=== PATIENT | male | born 1960 | race Caucasian/White ===

== ENCOUNTER → 2018-03-19 | Outpatient (CLI) | payer MEDICARE ==
--- NOTE | 2018-03-19 09:57 | RAD ---
EXAM DESCRIPTION: Knee,Left Complete CLINICAL HISTORY: PAIN IN LEFT KNEE COMPARISON: None. IMPRESSION: 4 standing views of the left knee show evidence of total knee arthroplasty with cement fixation of the tibial and femoral components. No radiographic evidence of hardware failure or loosening is seen. No fracture or dislocation is identified. Soft tissues are unremarkable. No obvious joint effusion. Electronically signed by: Raj Louie MD 03/19/2018 9:56 AM CDT
--- NOTE | 2018-03-22 09:31 | RAD ---
EXAM DESCRIPTION: Pelvis CLINICAL HISTORY: 57 years Male, PAIN IN LEFT HIP COMPARISON: None. FINDINGS: Bony pelvis is intact. Moderately acetabular degenerative changes are present with marginal osteophyte formation with preserved joint space and mild subcortical sclerosis. No fracture or dislocation or osteonecrosis is noted. The changes are similar on the left and right. IMPRESSION: Atrophic changes involving both acetabula consistent with modest degenerative changes, otherwise negative study Electronically signed by: Thai Yang MD 03/22/2018 9:29 AM [facility]
== END ==
LOC: RAD 08:33
PROVIDERS: ATTEND Orthopaedic Surgery
DX: M25.562 Pain in left knee (principal); M25.552 Pain in left hip; Z96.652 Presence of left artificial knee joint

== ENCOUNTER → 2018-03-31 | Outpatient (CLI) | payer MEDICARE, MEDICAID ==
--- NOTE | 2018-04-01 14:00 | NM ---
EXAM DESCRIPTION: Bone Scan, 3Phase CLINICAL HISTORY: Left knee pain COMPARISON: Left knee radiograph dated March 19, 2018 TECHNIQUE: Following intravenous administration of 28.5 mCi technetium 99m MDP, three-phase bone scan including the blood flow, blood pool, and delayed phases were obtained over the bilateral knees. FINDINGS: Blood flow phase: There is no significant blood flow to the bilateral knee regions. Physiologic radiotracer is noted within the vasculature of the knees. Blood pool phase: There is no significant increased blood pool to the bilateral knee regions. Delayed phase: Mild delayed phase increased uptake demonstrated of the lateral femoral condylar region of the left knee as well as the left tibial tuberosity. Photopenic defect is seen in the left knee region, compatible with left knee prosthesis. Degenerative uptake noted of the right knee. IMPRESSION: 1. No abnormal blood flow nor blood pool demonstrated of the left knee. There is mild delayed phase uptake in the lateral femoral condylar region as well as the tibial tuberosity of the left knee. These are nonspecific, and likely represent reactive uptake. No scintigraphic evidence for prosthesis loosening. 2. Degenerative uptake of the right knee. Electronically signed by: Madi Obregon MD 04/01/2018 1:59 PM [facility]
== END ==
LOC: NM 10:00
PROVIDERS: ATTEND Orthopaedic Surgery
DX: M25.562 Pain in left knee (principal)
CPT/HCPCS: 78315; A9503

== ENCOUNTER → 2018-11-17 | Outpatient (CLI) | payer MEDICARE ==
--- NOTE | 2018-11-17 13:47 | MRI ---
EXAM DESCRIPTION: Lumbar Spine w/o Contrast : Magnetic Resonance Imaging. CLINICAL HISTORY: SPONDYLOSIS LUMBAR COMPARISON: LUMBAR TECHNIQUE: Multiplanar, multiple standard sequences, non contrast MRI, lumbar spine. FINDINGS: L5-S1: Disc desiccation with minimal loss in the posterior disc space. Bilateral outer endplates with moderate endplate reaction. 5 mm posterior left paracentral disc bulge abutting the descending left S1 nerve. Bilateral hypertrophic facet arthrosis and thickened flavum ligaments. No significant narrowing. Moderate to severe narrowing of the right foramen and mild to moderate narrowing of the left foramen. Right hyperintense signal in the anterior L5 vertebral body on all sequences most likely a hemangioma. L4-L5: Disc desiccation and posterior disc space loss with moderate endplate reactive changes in the inferior L4 endplate. Posterior broad-based 3 mm disc bulge with hyperintense T2 annular fissure in the midline into the left of midline. Moderate bilateral facet hypertrophic arthrosis and ligament thickening; AP canal diameter 11 mm. Mild narrowing of the left foramen and right foramen is patent. L3-L4: Disc desiccation minimal disc space loss. Diffuse moderate endplate spondylosis changes more in the midline into the right of midline. Posterior midline 5 mm disc bulge. Mild to moderate bilateral hypertrophic facet arthrosis and ligament thickening. Elongated cystlike object between the left medial facet joint in the thecal sac also abutting the descending left L4 nerve in the lateral recess. Most likely a synovial cyst from the facet joint. AP canal diameter 9 mm. Marrow edema in the inferior L3 endplate with Schmorl's node and slight upward concavity could be related to spondylosis more partial compression injury. Normal marrow signal in the pedicles. L2-L3: Disc desiccation and minimal disc space loss. Concavity of the superior endplate, but no marrow edema. Disc desiccation with disc space preserved. Minimal posterior bulging. Bilateral hypertrophic facet arthrosis and flavum ligament thickening. AP canal diameter 11 mm. Bilateral foramina are patent. L1-L2: Disc desiccation with posterior disc space narrowed. Schmorl's node superior L2 endplate. Spondylosis anterior inferior L1 endplate. No posterior disc bulge. Bilateral foramina are patent. T12-L1: Minimal disc desiccation and small Schmorl's nodes in the endplates. No disc bulge. Posterior elements are not negative. Canal and foramina are patent. Conus terminates at this level. No scoliosis. Paravertebral soft tissues negative.. Otherwise normal marrow signal in the remaining vertebral bodies and the posterior elements. Vertebral bodies are not compressed at any level. IMPRESSION: 1. Left posterior paracentral L5-S1 disc bulge abutting the descending left S1 nerve. Bilateral mild spondylosis. Moderate to severe narrowing of the right foramen. 2. Posterior broad-based L4-L5 disc bulge. Moderate spondylosis. Posterior elements hypertrophy with moderate canal narrowing. 3. Posterior midline L3-L4 disc bulge. Moderate hypertrophic facet arthrosis and ligament thickening with mild canal stenosis. Left facet synovial cyst with mass effect on the descending left L4 nerve root. Marrow edema in the inferior L3 endplate can be due to spondylosis or superior compression injury. Superior L3 endplate negative. Electronically signed by: Jerome Jenkins MD 11/17/2018 1:45 PM CDT
== END ==
LOC: MRI 08:00
PROVIDERS: ATTEND Anesthesiology
DX: M47.816 Spondylosis without myelopathy or radiculopathy, lumbar region (principal); M51.16 Intervertebral disc disorders with radiculopathy, lumbar region; M71.38 Other bursal cyst, other site

== ENCOUNTER → 2018-12-03 | Outpatient (CLI) | payer MEDICARE, OTHER ==
--- NOTE | 2018-12-03 09:58 | RAD ---
EXAM DESCRIPTION: Knee,Right Complete CLINICAL HISTORY: M25.561 . Rheumatoid arthritis. COMPARISON: None FINDINGS: 4 views of the right knee. Joint spaces are relatively well-maintained. Mild marginal joint line osteophyte formations are noted greatest along the patellofemoral compartment. No significant subchondral sclerosis or cystlike formation is demonstrated along the knee joint to suggest an advanced osteoarthritis. No acute fractures are present. Normal bone mineralization is present. Slight varus deformity. Large enthesophytes at the quadriceps and patellar tendons without periosteal reaction. A small joint effusion is likely. IMPRESSION: No acute radiographic finding. Chronic findings described above. Electronically signed by: Saurabh Tai MD 12/03/2018 9:56 AM CDT
--- NOTE | 2018-12-03 14:38 | NM ---
EXAM DESCRIPTION: Hepatobiliar w/CCK CLINICAL HISTORY: Chronic abdominal pain COMPARISON: None available TECHNIQUE: Routine hepatobiliary scan was performed following intravenous administration of 8 mCi technetium 99m Choletec. Oral ingestion of 8 ounce Ensure fatty meal was used to stimulate gallbladder contraction. FINDINGS: Hepatobiliary scan shows prompt accumulation of the radiopharmaceutical within the liver and excretion into the biliary ductal system and gallbladder. Gallbladder ejection fraction is assessed following oral ingestion of fatty meal. Patient reports mild abdominal impression right upper quadrant following Ensure fatty meal consumption. Gallbladder ejection fraction calculated up to 48%. There is excretion of radiotracer from the common bile duct into the small bowel. IMPRESSION: 1. Visualization of the gallbladder essentially excludes acute cholecystitis. 2. Minimal gallbladder ejection fraction at 48% (normal range is greater than 35%). 3. Patient reports mild abdominal pressure right upper quadrant following Ensure fatty meal consumption. Electronically signed by: Madi Obregon MD 12/03/2018 2:36 PM CDT
== END ==
LOC: NM 09:30
PROVIDERS: ATTEND Emergency Medicine
DX: M76.891 Other specified enthesopathies of right lower limb, excluding foot (principal); M25.761 Osteophyte, right knee; M21.161 Varus deformity, not elsewhere classified, right knee; R10.9 Unspecified abdominal pain
CPT/HCPCS: 73562; 78227; A9537

== ENCOUNTER → 2019-01-13 | Outpatient (CLI) | payer MEDICARE, OTHER ==
--- NOTE | 2019-01-13 11:16 | RAD ---
Pelvis one view INDICATION: Right hip and left hip pain IMPRESSION: Moderate osteoarthrosis of both hips. No evidence of displaced fracture. No destructive lesion. Electronically signed by: Sony Hawk MD 01/13/2019 11:13 AM CDT
--- NOTE | 2019-01-13 11:21 | RAD ---
Right shoulder 4 views INDICATION: Shoulder pain IMPRESSION: Mild glenohumeral and AC joint osteoarthrosis. No fracture or dislocation. Electronically signed by: Sony Hawk MD 01/13/2019 11:18 AM CDT
--- NOTE | 2019-01-13 13:59 | MRI ---
MRI right shoulder without contrast INDICATION: Shoulder pain rotator cuff tear TECHNIQUE: Noncontrast MR imaging right shoulder standard protocol FINDINGS: Fairly severe hypertrophic AC joint osteoarthrosis. Minimal subacromial and subdeltoid bursal fluid. There is cystic change along the bursal surface of the infraspinatus myotendinous region into the interstitium. Interstitial undersurface tendinosis and partial tears of the insertional supraspinatus and infraspinatus low to moderate grade. No detachment. Cystic change greater tuberosity. Minimal bursal edema. Diffuse labral degeneration and mild glenohumeral osteoarthrosis. Small para labral cyst along the inferior glenoid coronal series 401 image 13. No bicep rupture or dislocation. Subscapularis is intact. There is a small lipoma along the inferior margin subscapularis sagittal series 601 image 16. This measures 1.6 x 1 cm. Grade 1-2 fatty marbling throughout the rotator cuff muscle bellies. IMPRESSION: Interstitial cyst/ganglion upper infraspinatus related to interstitial partial tear of the tendon Fairly severe hypertrophic AC joint arthrosis with subacromial enthesophyte and type III acromion Interstitial tendinosis and partial tear supraspinatus without detachment Mild bursal edema Diffuse labral degeneration with mild glenohumeral osteoarthrosis and small para labral cysts Electronically signed by: Sony Hawk MD 01/13/2019 1:57 PM CDT
== END ==
LOC: RAD 08:24
PROVIDERS: ATTEND Orthopaedic Surgery
DX: M16.0 Bilateral primary osteoarthritis of hip (principal); M19.011 Primary osteoarthritis, right shoulder; M65.811 Other synovitis and tenosynovitis, right shoulder; M75.101 Unspecified rotator cuff tear or rupture of right shoulder, not specified as traumatic; M67.411 Ganglion, right shoulder; M25.512 Pain in left shoulder

== ENCOUNTER 2019-01-26 05:55 | Day surgery (SDC) | payer MEDICARE, OTHER ==
[2019-01-26] MEDS ORDERED: PROPOFOL 200 MG/20 ML VIAL IV ONE (07:00)
[2019-01-26] MEDS ORDERED: LIDOCAINE 1% 10 ML VIAL INJ ONE (07:00)
[2019-01-26] MEDS ORDERED: LACTATED RINGERS 1,000 ML ONE (13:28)
[2019-01-26 14:06] VITALS: O2SAT 99
[2019-01-26] MEDS: LIDOCAINE 1% 10 ML VIAL INJ ONE ×2 (14:26→14:28)
[2019-01-26] MEDS: BUPIVACAINE 0.25% W/EPI 50 ML VIAL INJ ONE ×2 (14:26→14:28)
[2019-01-26] MEDS: methylPREDNISolone ACETATE 80 MG/ML VIAL ONE ×2 (14:26→14:28)
[2019-01-26 15:52] VITALS: BP 132/68; TEMP 97.9
--- NOTE | 2019-01-28 09:40 | OP ---
DATE OF PROCEDURE: 01/26/19 PREOPERATIVE DIAGNOSIS: 1. Bilateral hip osteoarthritis. POSTOPERATIVE DIAGNOSIS: 1. Bilateral hip osteoarthritis. PROCEDURE: 1. Bilateral hip injection. SURGEON: Charbel Padilla MD. LITIGATION SUPPORT ANALYST: Jerome Boggs CST, SA-C. ANESTHESIA: Conscious sedation. COMPLICATIONS: None. FINDINGS: Severe arthritis of both hips. INDICATION: Mr. Ahumada has a history of pain that has been associated with bilateral hip osteoarthritis. Because of his ongoing pain and failure of more conservative measures, he has requested operative intervention. After discussing the risks, benefits and alternatives to that, the patient has given informed consent for bilateral hip infection. PROCEDURE: The patient was brought to the Operating Room and placed in supine position. Conscious sedation was administered and groin was prepped with Betadine solution. The hip was flexed, abducted and externally rotated. Fluoroscopic imaging was used to advance spinal needle into the hip joint at which time 8 cc of lidocaine and 1 cc Depo-Medrol were injected into the joint. Attention was then focused on the contralateral side. After prepping the groin with Betadine solution, it was flexed, abducted and externally rotated. A spinal needle was advanced into the hip joint and it was injected with lidocaine and Depo-Medrol. Sterile bandages were placed. The patient was then taken back to the Day Surgery Unit. POSTOPERATIVE PLAN: The patient will be weightbearing as tolerated. The patient will followup with us in about 10 days. #[id number] [facility]TDD
--- NOTE | 2019-02-01 14:29 | RAD ---
PROVIDED CLINICAL HISTORY/REASON FOR EXAM: IA INJECTION Findings/impression: Two intraoperative fluoroscopic images of an intra-articular hip injection. Dose: Not documented Time: Five seconds Electronically signed by: Matthieu Kaye MD 02/01/2019 2:27 PM CDT
== END 2019-01-26 15:45 | disposition home or self-care (01) ==
LOC: AMB 05:55
PROVIDERS: ATTEND Orthopaedic Surgery
DX: M16.0 Bilateral primary osteoarthritis of hip (principal); Z79.01 Long term (current) use of anticoagulants; Z79.899 Other long term (current) drug therapy
CPT/HCPCS: 01200; 20610; 36416; 76000; 80307; 82948; 87070; J1030; J3490; J7120

== ENCOUNTER → 2019-04-01 | Outpatient (CLI) | payer MEDICARE, OTHER ==
--- NOTE | 2019-04-01 14:09 | CT ---
Procedure: CT LUNG SCREENING Exam Date: 04/01/2019. Ordering Provider: MARISABEL FISCHER Clinical Indication: HX OF NICOTINE DEPENDENCE . Current cigarette smoker. 30-40 pack years. This patient meets eligibility criteria for low-dose CT lung cancer screening. Comparison: None. Technique: Using a multislice scanner, sequential helical axial imaging was obtained in the thorax, 2.5 mm thickness, 2.5 mm separation, from the level of the thoracic inlet through the lung bases without IV contrast. A low dose protocol was utilized for BMI greater than than 30: BMI: 31.6. CTDI: 2.93 mGy. 120. kVp. 75 mA. DLP 108.46 mGy-centimeters. 2D sagittal and coronal reconstructed images, 6.0 mm thickness, were obtained. This exam was performed according to our departmental dose optimization program which includes use of automated exposure control, adjustment of the mA and/or kV according to patient size and/or use of iterative reconstruction technique. Nodule measurements under 10 mm are given as mean value of 3 axes diameters. FINDINGS: Lungs and large airways: Small bilateral uniform parenchymal blebs in a centrilobular distribution predominantly upper lung lucero. Parenchymal pleural scarring in the inferior right middle lobe and inferior lingula. No abnormal nodules. Pleura and space: Small 3 mm calcification abutting the anterior lateral pleura right upper lobe near the apex. Large plaque-like calcification posterior right hemidiaphragm medial pleura abutting the adjacent liver. No effusion or pneumothorax. Mediastinum and bhaskar: evaluation limited by low dose technique and lack of IV contrast. Negative. Heart and great vessels: Small coronary artery calcifications. Chest wall, lower neck, axillae: Evaluation also limited by same factors as described above. Negative. Upper abdomen: Evaluation limited by low-dose technique. No free air or free fluid in the included peritoneal. Gallbladder partially visualized. Partial visualization of the adrenal glands and spleen. Osseous structures: Evaluation limited by low dose MIP technique. Minimal dextroscoliosis. Minimal arthrosis bilateral first costosternal joints and bilateral sternoclavicular joints. IMPRESSION: Minimal emphysematous changes. No abnormal nodules. No masses. No focal infiltrates.. [facility] Best Practice Recommendations: please see below for Lung RADS category and FOLLOW-UP.* *Lung RADS category Category 1 - No nodule or definitely benign nodules (probability of malignancy less than 1%). Follow-up: Continue annual screening with Low Dose Chest CT in 12 months. Electronically signed by: Jerome Jenkins MD 04/01/2019 2:07 PM [facility]
== END ==
LOC: CT 09:00
PROVIDERS: ATTEND General Practice
DX: Z87.891 Personal history of nicotine dependence (principal); J43.9 Emphysema, unspecified

== ENCOUNTER → 2019-04-08 | Outpatient (CLI) | payer MEDICARE, OTHER ==
--- NOTE | 2019-04-10 10:33 | MRI ---
EXAM DESCRIPTION: Brain w/o Contrast: MRI. CLINICAL HISTORY: MIGRAINE WITHOUT AURA COMPARISON: None. TECHNIQUE: Multiplanar, high-field MRI unit, multiple diffusion sequences, multiple conventional sequences without contrast. FINDINGS: Bilateral foci of hyperintense FLAIR and T2-weighted signal in the periventricular kraft radiata and centrum semiovale bilaterally more right than left. Also same signal in the subcortical white matter above the level of the ventricles frontal parietal and occipital lobes. Relative sparing of the temporal lobes.. No hemorrhage, no cerebral edema, no mass-effect. Normal signal bilateral basal ganglia. Normal signal in the brainstem. Cerebellar hemispheres with focal T2 and FLAIR hyperintense signal bilaterally in the superior subcortical regions. No hemorrhage, no parenchymal edema, no mass-effect. Concordance of the diffusion and non-diffusion sequences with no diffusion restriction. Cortical sulci, ventricles, and other CSF spaces, and the subdural spaces are normally configured. No effacement or displacement. No midline shift. No extra-axial hemorrhage. Normal flow signal void in the major vessels of the [place], and the venous sinuses. IACs are symmetric bilaterally. Normal signal in the bilateral mastoid air cells. No mass effect in the bilateral cerebellopontine angles. Pituitary gland occupies approximately half of the sella. Base of the cerebellar tonsils is 6 mm below the foramen magnum. The tonsils are normally shaped. No posterior fossa cyst or cisterna magna. Cerebellar folia are not effaced. Fourth ventricle is not enlarged or elongated. Minimal mucosal periosteal thickening paranasal sinuses.. Minimal edema in the distal optic nerve sheaths abutting the optic globes. The bony calvarium is intact. Subcutaneous soft tissue tissue posterior to the cervical spine, inferior to the occiput, indicates large body habitus. IMPRESSION: 1. Abnormal white matter signal in the majority of the cerebral lobes bilaterally and also in the bilateral upper cerebral hemispheres can be related to migraines, cerebral microvascular disease, aging, demyelinating disorder or previous inflammatory process. No diffusion restriction indicating subacute or acute infarction or severe ischemia. 2. Low cerebellar tonsils, inferior tip 9 mm below the foramen magnum. No mass effect in the posterior fossa no cisterna magna or cyst. Fourth ventricle not be elongated. Normal morphology of the cerebellar tonsils. This could represent cerebellar tonsillar ectopia versus Chiari I malformation. Can also be related to distal optic nerve sheath edema, partially empty sella. Also related to large body habitus. Electronically signed by: Jerome Jenkins MD 04/10/2019 10:[address] [facility]
== END | disposition home or self-care (01) ==
LOC: MRI 11:00
PROVIDERS: ATTEND Emergency Medicine
DX: G43.009 Migraine without aura, not intractable, without status migrainosus (principal)

== ENCOUNTER → 2019-04-12 | Outpatient (CLI) | payer MEDICARE, OTHER ==
--- NOTE | 2019-04-13 10:06 | MRI ---
EXAM DESCRIPTION: MRA Head and/or Neck CLINICAL HISTORY: MIGRAINE WITHOUT AURA COMPARISON: MRI scan of the brain without contrast 08 April 2019. TECHNIQUE: 3D [id number] thin-section axial acquisitions through the base of the skull and the [place]. Non contrast. MIP reconstructions. Technically difficult study due to patient motion causing artifact. FINDINGS: Irregularities in the distal cervical left ICA, petrous segment, clinoid segments and intracranial segments is likely related to artifact. Unremarkable bifurcation to form the MCA and LITTLE on the left. Left posterior communicating artery forms the left posterior cerebral artery. Proximal branches of the LITTLE and MCA are unremarkable. Irregularities in the distal cervical right ICA, petrous segment, clinoid segment, intracranial segment likely related to artifact. Unremarkable bifurcation to form the right LITTLE and MCA. Proximal branches of both vessels are unremarkable. Right posterior communicating artery joins with rudimentary basilar artery to form the right posterior cerebral artery. The proximal LITTLE and MCA branch vessels are symmetric bilaterally. No aneurysm, no stenosis, no mass effect, and no vasculitis. Posterior circulation: Limited visualization of the distal vertebral arteries at the junction to form the basilar artery is well demonstrated bilateral AICA vessels exit from the proximal basilar and bilateral superior cerebellar arteries exhibit from the distal basilar. A small rudimentary distal basilar communicates with the right posterior communicating artery to form the right posterior cerebral artery. Left posterior cerebral artery essentially supplied by the left intracranial ICA. No aneurysm or stenosis. No mass effect or vasculitis. IMPRESSION: 1. Irregularity of the cervical and intracranial segments of the ICAs bilaterally is interpreted to be secondary to artifact due to size of the patient's head and motion. 2. Intracranial ICA segments bilaterally are unremarkable, including formation of the bilateral posterior communicating arteries, and bifurcation of the middle cerebral and anterior cerebral arteries bilaterally. The included anterior middle cerebral arteries bilaterally and proximal branches are unremarkable. 3. Only the distal vertebral arteries were visualized and were unremarkable. Basilar artery and branches negative. Rudimentary distal basilar artery forms the right posterior cerebral artery with the right posterior communicating artery. Left posterior cerebral artery essentially an extension of the left posterior communicating artery. No aneurysms, no significant stenosis, no mass effect, and no vasculitis in the anterior and posterior circulations. Electronically signed by: Jerome Jenkins MD 04/13/2019 10:04 AM [facility]
== END ==
LOC: MRI 11:00
PROVIDERS: ATTEND Emergency Medicine
DX: G43.009 Migraine without aura, not intractable, without status migrainosus (principal); H81.10 Benign paroxysmal vertigo, unspecified ear

== ENCOUNTER → 2019-05-06 | Outpatient (CLI) | payer MEDICARE, OTHER | LOC: LAB.O 09:00 | PROVIDERS: ATTEND Orthopaedic Surgery | DX: Z01.818 Encounter for other preprocedural examination (principal) ==

== ENCOUNTER 2019-05-25 05:31 | Day surgery (SDC) | payer MEDICARE, MEDICAID ==
[2019-05-25] MEDS ORDERED: ceFAZolin SODIUM 1 GM VIAL ONE ×2 (05:43→10:23)
[2019-05-25] MEDS ORDERED: SODIUM CHL 0.9% 100ML MINI-BAG 100 ML IVPB ONE (05:43)
[2019-05-25] MEDS ORDERED: LACTATED RINGERS 1,000 ML ONE ×2 (05:43→13:39)
[2019-05-25] MEDS ORDERED: PROPOFOL 200 MG/20 ML VIAL IV ONE (07:00)
[2019-05-25] MEDS ORDERED: LIDOCAINE 1% 10 ML VIAL INJ ONE (07:00)
[2019-05-25] MEDS ORDERED: ONDANSETRON INJ 4 MG/2 ML VIAL ONE (07:00)
[2019-05-25] MEDS ORDERED: DEXAMETHASONE INJ 10 MG/ML VIAL ONE (07:00)
[2019-05-25] MEDS ORDERED: LACTATED RINGERS 1,000 ML BAG IV ONE (10:15)
[2019-05-25] MEDS ORDERED: LACTATED RINGERS 1,000 ML IVS ONE ×3 (10:15→13:48)
[2019-05-25] MEDS ORDERED: BUPIVACAINE 0.5% 30 ML VIAL INJ ONE ×3 (10:23→11:26)
[2019-05-25] MEDS ORDERED: VANCOMYCIN HCL INJ 1,000 MG VIAL IVPB ONE ×2 (10:23→11:26)
[2019-05-25] MEDS ORDERED: BUPIVACAINE LIPOSOME 13.3 MG/ML VIAL INJ ONE ×2 (10:23→11:26)
[2019-05-25] MEDS ORDERED: MIDAZOLAM INJ 2 MG/2 ML VIAL ONE (11:13)
[2019-05-25] MEDS ORDERED: fentaNYL CITRATE INJ 50 MCG/ML AMP ONE ×2 (11:14→13:55)
[2019-05-25] MEDS ORDERED: ROCURONIUM BROMIDE 10 MG/ML VIAL ONE (11:17)
[2019-05-25] MEDS ORDERED: SUGAMMADEX SODIUM 200 MG/2 ML VIAL IV ONE (11:17)
[2019-05-25] MEDS ORDERED: ceFAZolin SODIUM 1 GM VIAL INJ ONE (12:33)
[2019-05-25] MEDS ORDERED: LEVALBUTEROL NEBS 1.25 MG/3 ML VIAL NEB ONE ×3 (13:27→13:30)
[2019-05-25] MEDS ORDERED: KETOROLAC TROMETHAMINE INJ 30 MG/ML VIAL IV ONE ×2 (13:34)
[2019-05-25] MEDS ORDERED: KETOROLAC TROMETHAMINE INJ 30 MG/ML VIAL ONE (13:37)
[2019-05-25] MEDS ORDERED: MORPHINE SULFATE INJ 10 MG/ML VIAL ONE (13:38)
[2019-05-25] MEDS ORDERED: MORPHINE SULFATE INJ 10 MG/ML VIAL IV ONE ×5 (13:44→14:26)
[2019-05-25] MEDS ORDERED: fentaNYL CITRATE INJ 50 MCG/ML AMP IV ONE ×2 (14:04→14:14)
[2019-05-25] MEDS ORDERED: HYDROcodone 5MG/APAP 325MG 1 EA TAB ONE (14:56)
[2019-05-25] MEDS ORDERED: HYDROcodone 5MG/APAP 325MG 1 EA TAB PO ONE (15:00)
[2019-05-25 16:07] VITALS: BP 118/59; TEMP 98.6; O2SAT 97
--- NOTE | 2019-05-27 09:09 | OP ---
DATE OF PROCEDURE: 05/25/19 PREOPERATIVE DIAGNOSIS: 1. Right rotator cuff tear. 2. Impingement syndrome. POSTOPERATIVE DIAGNOSIS: 1. Right rotator cuff tear. 2. Impingement syndrome. PROCEDURE: 1. Subacromial decompression and distal clavicle resection. 2. Rotator cuff repair. SURGEON: Charbel Padilla MD. REAL ESTATE PROFESSOR: Jerome Boggs CST, -C. ANESTHESIA: General anesthesia. COMPLICATIONS: None. FINDINGS: 1. Tear in the rotator cuff at the supraspinatus measuring approximately 1 cm and no significant retraction. 2. Type 2 acromion. 3. Acromioclavicular arthritis. INDICATION: Mr. Ahumada has a long history of shoulder pain. He has had conservative measures, however has failed to gain relief. Because of his ongoing symptoms and failure of conservative measures, he requested operative intervention. After discussing the risks, benefits and alternatives to operative therapy, the patient has given informed consent for the above procedures. PROCEDURE: The patient was brought to the Operating Room and placed in the supine position. General anesthesia was induced and the patient was transitioned into the beach chair position. Following that, the arm and shoulder were sterilely prepped and draped. An incision was made along the lateral border of the acromion and dissection was carried down to the deltoid. The deltoid was split between the anterior and middle heads and an acromioplasty was performed, followed by bursectomy. The rotator cuff was identified and examined. The tear in the supraspinatus was noted and the end of the tendon was debrided. Two suture anchors were used to reapproximate the tear in an anatomic fashion. Following that, the wound was irrigated and the deltoid was reapproximated. the acromioclavicular joint was identified and full thickness periosteal flaps were developed. Following that, the distal 5 to 7 mm of the clavicle was resected. Care was taken to remove all bony debris. It was irrigated and the periosteal flaps were closed. Following that, the skin was closed with a combination of running and interrupted subcuticular stitches. Sterile dressings were placed. The patient was awoken from anesthesia and taken to Recovery. POSTOPERATIVE PLAN: He is going to be limited with regards to range of motion and lifting. We will see him back in two days. #[id number] [facility]
== END 2019-05-25 16:00 | disposition home or self-care (01) ==
LOC: AMB 05:31
PROVIDERS: ATTEND Orthopaedic Surgery
DX: M75.101 Unspecified rotator cuff tear or rupture of right shoulder, not specified as traumatic (principal); M75.41 Impingement syndrome of right shoulder; G89.4 Chronic pain syndrome; I25.10 Atherosclerotic heart disease of native coronary artery without angina pectoris; E11.9 Type 2 diabetes mellitus without complications; J44.9 Chronic obstructive pulmonary disease, unspecified; F17.210 Nicotine dependence, cigarettes, uncomplicated; Z79.01 Long term (current) use of anticoagulants; Z79.899 Other long term (current) drug therapy
CPT/HCPCS: 01630; 23120; 23420; 36416; 80307; 81001; 82948; J0690; J1100; J1885; J2250; J2270; J2405; J3010; J3370; J3490; J7050; J7120; J7614

== ENCOUNTER → 2019-10-14 | Outpatient (CLI) | payer MEDICARE, MEDICAID ==
--- NOTE | 2019-10-14 09:20 | RAD ---
EXAM DESCRIPTION: Shoulder,Left 2 or More Views CLINICAL HISTORY: 58 years Male, PAIN COMPARISON: None available. FINDINGS: The visualized bones are well-mineralized.No acute fracture or dislocation. Moderate acromioclavicular joint osteoarthritis. Mild irregularity of the greater tuberosity suggests rotator cuff pathology. The soft tissues appear grossly unremarkable. IMPRESSION: Moderate acromioclavicular joint osteoarthritis. Mild irregularity of the greater tuberosity suggests rotator cuff pathology. Electronically signed by: Bijal Vaughn MD 10/14/2019 9:19 AM CDT
== END ==
LOC: RAD 08:05
PROVIDERS: ATTEND Orthopaedic Surgery
DX: M19.012 Primary osteoarthritis, left shoulder (principal); M89.9 Disorder of bone, unspecified

== ENCOUNTER → 2019-11-24 | Outpatient (CLI) | payer MEDICARE, MEDICAID ==
--- NOTE | 2019-11-24 13:42 | MRI ---
EXAM DESCRIPTION: Brain w/wo Contrast: Magnetic Resonance Imaging. CLINICAL HISTORY: 58 years Male SYSTEMIC SCLEROSIS WITH POLYNEUROPATHY COMPARISON: MRI scan of the brain without gadolinium IV contrast March 2019. TECHNIQUE: Multiplanar, high-field MRI, multiple conventional sequences, without and with gadolinium IV contrast. No adverse reactions. Multiple axial diffusion sequences. FINDINGS: Bilateral multifocal lesions with hyperintense FLAIR and T2-weighted signal in the periventricular white matter and karimi-white matter junctions of the cerebral hemispheres are stable since the prior study. No abnormal contrast enhancement. No hemorrhage, no cerebral edema, no mass-effect. Focal subcortical white matter lesion in the left occipital lobe above the level of the occipital horn, is stable with central encephalomalacia and no contrast enhancement. Normal signal in the bilateral basal ganglia. Normal contrast enhancement. Normal signal in the brainstem and cerebellar hemispheres. No hemorrhage, no cerebral edema, no mass-effect. Normal contrast enhancement. Concordance of the diffusion and non-diffusion sequences with no evidence of acute or subacute infarction. Cortical sulci, ventricles, and other CSF spaces, and the subdural spaces are normally configured for patients age. No effacement or displacement. No midline shift. No extra-axial hemorrhage. Normal contrast enhancement. Normal flow signal void in the major vessels of the [place], and the venous sinuses. IACs are symmetric bilaterally. Normal signal in the bilateral mastoid air cells. No mass effect in the bilateral Cerebellopontine angles. Normal contrast enhancement. Pituitary gland occupies approximately half of the sella. Normal contrast enhancement. Base of the cerebellar tonsils is 2 mm inferior to the foramen magnum. Normal signal in the bilateral paranasal sinuses. The bony calvarium is intact. Minimal edema in the distal optic nerve sheaths as before. IMPRESSION: 1. Bilateral subcortical white matter lesions and periventricular white matter lesions are stable since the prior study. 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 No mass effect, no hemorrhage, no cerebral edema, no abnormal contrast enhancement. 2. Normal noncontrast MRI diffusion study with no evidence of significant ischemia or subacute or acute infarction. Electronically signed by: Jerome Jenkins MD 11/24/2019 1:40 PM CDT
== END ==
LOC: MRI 10:00
PROVIDERS: ATTEND Psychiatry & Neurology Neurology
DX: M34.83 Systemic sclerosis with polyneuropathy (principal); R90.82 White matter disease, unspecified

== ENCOUNTER → 2019-11-28 | Outpatient (CLI) | payer MEDICARE, MEDICAID ==
--- NOTE | 2019-11-28 15:14 | MRI ---
EXAM DESCRIPTION: Cervical Spine CLINICAL HISTORY: 58 years Male, SYSTEMIC SCLEROSIS WITH POLYNEUROPATHY COMPARISON: None. TECHNIQUE: Multisequence, multiplanar images of the cervical spine obtained without intravenous contrast. FINDINGS: Vertebrae: No acute fracture. No acute compression or deformity. Mild straightening the cervical spine with mild cervical lordosis centered at C6-C7. Modic type degenerative endplate changes at C5-C6 and C6-C7. Spinal cord: No cerebellar ectopia. Normal cord signal. Mild flattening of the spinal cord at C4-C5, C5-C6, and C6-C7. Discs, facets, spinal canal, and neural foramina: Disc desiccation throughout the cervical spine. Mild C5-C6 and moderate C6-C7 disc space narrowing. C2-C3: Mild right and moderate left vertebral spurring. Mild left greater than right facet arthropathy. Spinal canal and neuroforamina patent. C3-C4: Moderate vertebral spurring. Mild right and severe left facet arthropathy. Mild spinal canal stenosis. Mild right and moderate left neural foraminal stenosis. C4-C5: Moderate vertebral spurring. [id number] facet arthropathy bilaterally. Moderate spinal canal stenosis. Mild bilateral neural foraminal stenosis. C5-C6: Moderate vertebral spurring. Moderate facet arthropathy. Moderate spinal canal stenosis. Moderate right and severe left neural foraminal stenosis. C6-C7: Small disc osteophyte complex with severe right and moderate uncovertebral spurring. Mild/moderate facet arthropathy. Moderate spinal canal stenosis. Moderate right and severe left neural foraminal stenosis. C7-T1: No significant findings. Other findings: Unremarkable paravertebral soft tissue tissues. 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 IMPRESSION: 1. No acute fracture. 2. Cervical spondylosis with up to moderate spinal canal stenosis and flattening of the spinal cord as above. 3. Multilevel neural foraminal compromise, greatest and severe at left C6, left C7. Electronically signed by: Jimmy Kimbrough MD 11/28/2019 3:12 PM CDT
== END ==
LOC: MRI 13:05
PROVIDERS: ATTEND Psychiatry & Neurology Neurology
DX: M34.83 Systemic sclerosis with polyneuropathy (principal); M47.892 Other spondylosis, cervical region; M48.02 Spinal stenosis, cervical region